=== PATIENT | male | born 1970 | race Two or more races ===

== ENCOUNTER 2016-08-08 19:11 | Inpatient (IN) | payer OTHER ==
[~2016-08-08] VITALS: Ht 167.6 cm; Wt 62.9 kg
[2016-08-08] MEDS ORDERED: ZOLPIDEM TARTRATE 5 MG TAB PO PRN (22:30)
[2016-08-08] MEDS ORDERED: D5W/SOD CHL 0.45% 1,000 ML IV SCH (22:30)
[2016-08-08] MEDS ORDERED: MORPHINE SULF INJ 2 MG/ML SYRINGE 1ML IV PRN (22:45)
[2016-08-08] MEDS ORDERED: NITROGLYCERIN 0.4 MG SL TAB SL PRN (22:45)
[2016-08-08 23:30] VITALS: BP 103/63
[2016-08-09] MEDS: HYDROcodone-ACET 10/325MG TAB PO PRN ×3 (02:06→13:39)
[2016-08-09 05:04] VITALS: BP 98/62
[2016-08-09 06:07] LABS: Basophils # (auto) 0 uL; Basophils % (auto) 0.8 % (0.0-2.0); Eosinophils # (auto) 0.1 uL; Eosinophils % (auto) 2.1 % (0.0-7.0); Hematocrit 44.2 % (41.0-53.0); Hemoglobin 14.6 g/dL (13.5-17.5); Lymphocytes % (auto) 34.4 % (10.0-50.0); Mean Corpuscular Hemoglobin 30.1 pg (28.0-32.0); Mean Corpuscular Volume 91.2 fL (80.0-100.0); Mean Platelet Volume 8.9 fL (7.4-10.4); Monocytes # (auto) 0.6 uL; Monocytes % (auto) 10.3 % (0.0-12.0); Neutrophils # (auto) 3.1 uL; Neutrophils % (auto) 52.4 % (37.0-80.0); Platelet Count (auto) 240 10^3/uL (140-450); Red Cell Distribution Width 13.4 % (11.6-16.0); White Blood Cell 5.9 10^3/uL (4.4-10.8)
[2016-08-09 06:22] LABS: INR 1.02 (0.9-1.15); Partial Thromboplastin Time 28.5 sec (22.64-33.71)
[2016-08-09 06:24] LABS: BUN/Creatinine Ratio 21.5; Calcium 8.2 mg/dL (8.5-10.1); Potassium 4.1 mmol/L (3.5-5.1)
[2016-08-09] MEDS ORDERED: LIDOCAINE 2%HCL (LOCAL ANESTH.) INJ 20ML MDV ONE (07:22)
[2016-08-09] MEDS ORDERED: IOHEXOL 350 MG/ML 100ML IJ ONE (07:22)
[2016-08-09 08:00] VITALS: BP 100/63
[2016-08-09 08:46] VITALS: BP 100/63
[2016-08-09] MEDS: METOPROLOL TARTRATE 25 MG TAB PO SCH (10:00)
[2016-08-09] MEDS: LISINOPRIL 5 MG TAB PO SCH (10:00)
[2016-08-09] MEDS ORDERED: ANGIOMAX 250 MG VIAL IV ONE (10:49)
[2016-08-09] MEDS ORDERED: fentaNYL CITRATE 100 MCG/2 ML VL ONE (10:49)
[2016-08-09] MEDS ORDERED: MIDAZOLAM HCL 1MG/1ML-2 ML VIAL ONE (10:50)
[2016-08-09] MEDS ORDERED: SODIUM CHL 0.9% 0 ML ONE (10:50)
[2016-08-09] MEDS ORDERED: HYDROcodone-ACET 5/325MG TAB PO PRN (12:00)
[2016-08-09] MEDS ORDERED: ceFAZolin 1GM/50ML D5W 50 ML IV ONE ×3 (12:00→20:00)
[2016-08-09] MEDS ORDERED: ONDANSETRON HCL 4 MG/2 ML VIAL IV PRN (12:00)
[2016-08-09] MEDS: SODIUM CHLORIDE 0.9% 1,000 ML IV SCH (12:00)
[2016-08-09 14:19] VITALS: BP 104/59
[2016-08-09 16:45] VITALS: BP 105/61
[2016-08-09] MEDS ORDERED: WARFARIN SODIUM 10 MG TAB PO ONE (17:00)
[2016-08-09] MEDS: ENOXAPARIN SOD 60 MG/0.6 ML SYRINGE SC SCH (21:47)
[2016-08-09] MEDS: FAMOTIDINE (10MG/ML) 2ML VL IV SCH (21:47)
[2016-08-09 22:00] VITALS: BP 97/65
[2016-08-10] MEDS: SODIUM CHLORIDE 0.9% 1,000 ML IV SCH ×2 (02:43→16:36)
[2016-08-10 05:00] VITALS: BP 96/58
[2016-08-10 06:42] LABS: INR 1.12 (0.9-1.15); Partial Thromboplastin Time 30.8 sec (22.64-33.71); Prothrombin Time 12.1 sec (9.37-12.3)
[2016-08-10 08:00] VITALS: BP 91/57
[2016-08-10] MEDS: METOPROLOL TARTRATE 25 MG TAB PO SCH (10:00)
[2016-08-10] MEDS: LISINOPRIL 5 MG TAB PO SCH (10:00)
[2016-08-10] MEDS: FAMOTIDINE (10MG/ML) 2ML VL IV SCH ×2 (11:13→21:37)
[2016-08-10] MEDS: ENOXAPARIN SOD 60 MG/0.6 ML SYRINGE SC SCH ×2 (11:13→21:37)
[2016-08-10 13:00] VITALS: BP 115/59
[2016-08-10 17:00] VITALS: BP 97/56
[2016-08-10] MEDS ORDERED: WARFARIN SODIUM 2.5 MG TAB PO ONE (17:00)
[2016-08-10 22:00] VITALS: BP 104/64
[2016-08-11 05:00] VITALS: BP 96/62
[2016-08-11 08:00] VITALS: BP 100/60
[2016-08-11 08:40] LABS: INR 1.43 (0.9-1.15); Partial Thromboplastin Time 33.1 sec (22.64-33.71); Prothrombin Time 15.4 sec (9.37-12.3)
[2016-08-11] MEDS: FAMOTIDINE (10MG/ML) 2ML VL IV SCH ×2 (09:12→21:13)
[2016-08-11] MEDS: ENOXAPARIN SOD 60 MG/0.6 ML SYRINGE SC SCH ×2 (09:13→21:14)
[2016-08-11] MEDS: LISINOPRIL 5 MG TAB PO SCH (09:13)
[2016-08-11] MEDS: METOPROLOL TARTRATE 25 MG TAB PO SCH (09:14)
[2016-08-11] MEDS: SODIUM CHLORIDE 0.9% 1,000 ML IV SCH ×2 (09:14)
[2016-08-11 13:00] VITALS: BP 91/56
[2016-08-11 17:00] VITALS: BP 100/58
[2016-08-11] MEDS ORDERED: WARFARIN SODIUM 5 MG TAB PO SCH (17:00)
[2016-08-11 22:00] VITALS: BP 96/61
[2016-08-12 05:00] VITALS: BP 98/58
[2016-08-12 06:17] LABS: Partial Thromboplastin Time 35.3 sec (22.64-33.71)
[2016-08-12 06:21] LABS: INR 1.86 (0.9-1.15); Prothrombin Time 20.1 sec (9.37-12.3)
[2016-08-12 08:00] VITALS: BP 93/60
[2016-08-12 09:00] VITALS: BP 93/60
[2016-08-12] MEDS: METOPROLOL TARTRATE 25 MG TAB PO SCH (09:59)
[2016-08-12] MEDS: LISINOPRIL 5 MG TAB PO SCH (10:00)
[2016-08-12] MEDS: ENOXAPARIN SOD 60 MG/0.6 ML SYRINGE SC SCH (10:02)
[2016-08-12] MEDS: FAMOTIDINE (10MG/ML) 2ML VL IV SCH (10:02)
[2016-08-12] MEDS: SODIUM CHLORIDE 0.9% 1,000 ML IV SCH (10:04)
[2016-08-12 13:00] VITALS: BP 91/64
[2016-08-12 13:32] VITALS: BP 93/60
== END 2016-08-12 16:05 | DRG 287 ==
LOC: WEST WING 19:11 → TELE-WESTW 20:35
PROVIDERS: ADMIT Specialist; ATTEND Internal Medicine
PROC: 4A023N7 Measurement of Cardiac Sampling and Pressure, Left Heart, Percutaneous Approach (ICD-10-PCS; principal; 2016-08-09)
PROC: B2151ZZ Fluoroscopy of Left Heart using Low Osmolar Contrast (ICD-10-PCS; 2016-08-09)
PROC: B2111ZZ Fluoroscopy of Multiple Coronary Arteries using Low Osmolar Contrast (ICD-10-PCS; 2016-08-09)
PROC: B3101ZZ Fluoroscopy of Thoracic Aorta using Low Osmolar Contrast (ICD-10-PCS; 2016-08-09)
PROC: B41F1ZZ Fluoroscopy of Right Lower Extremity Arteries using Low Osmolar Contrast (ICD-10-PCS; 2016-08-09)
DX: R07.9 Chest pain, unspecified (principal); I25.10 Atherosclerotic heart disease of native coronary artery without angina pectoris; I10 Essential (primary) hypertension; F12.90 Cannabis use, unspecified, uncomplicated; R94.39 Abnormal result of other cardiovascular function study; Z95.2 Presence of prosthetic heart valve; Z82.0 Family history of epilepsy and other diseases of the nervous system; Z82.49 Family history of ischemic heart disease and other diseases of the circulatory system; Z72.0 Tobacco use
CPT/HCPCS: 36415; 71010; 80048; 85025; 85610; 85730; 93005; 99152; J0690; J2250; J3490

== ENCOUNTER 2017-03-21 21:39 | Inpatient (IN) | payer OTHER ==
[~2017-03-21] VITALS: Ht 167.6 cm; Wt 69.2 kg
[2017-03-21 22:24] LABS: Basophils # (auto) 0.1 uL; Basophils % (auto) 1.4 % (0.0-2.0); Eosinophils # (auto) 0.2 uL; Eosinophils % (auto) 2.5 % (0.0-7.0); Hematocrit 45.1 % (41.0-53.0); Hemoglobin 15.2 g/dL (13.5-17.5); Lymphocytes # (auto) 2.4 uL; Lymphocytes % (auto) 35.6 % (10.0-50.0); Mean Corpuscular Hemoglobin 30.4 pg (28.0-32.0); Mean Corpuscular Hgb Conc. 33.7 g/dL (32.0-36.0); Mean Corpuscular Volume 90.3 fL (80.0-100.0); Mean Platelet Volume 8.1 fL (6.9-10.8); Monocytes # (auto) 0.6 uL; Monocytes % (auto) 8.8 % (0.0-12.0); Neutrophils # (auto) 3.4 uL; Neutrophils % (auto) 51.7 % (37.0-80.0); Nucleated Red Blood Cells % 0.1 %; Platelet Count (auto) 218 10^3/uL (140-450); Red Cell Distribution Width 13.5 % (11.8-14.3); White Blood Cell 6.6 10^3/uL (4.4-10.8)
[2017-03-21 22:33] LABS: Albumin 3.7 g/dL (3.4-5.0); Anion Gap 4 (5-15); Aspartate Aminotransferase 25 U/L (15-37); BUN/Creatinine Ratio 17.6; Blood Urea Nitrogen 15 mg/dL (7-18); Calcium 8.3 mg/dL (8.5-10.1); Carbon Dioxide 30 mmol/L (21-32); Chloride 104 mmol/L (98-107); GFR African American 124 mL/min; GFR Non-African American 103 mL/min; Glucose 78 mg/dL (74-106); INR 3.04 (0.9-1.15); Magnesium 2.4 mg/dL (1.6-2.6); Potassium 3.9 mmol/L (3.5-5.1); Prothrombin Time 33.5 sec (9.37-12.3); Sodium 138 mmol/L (136-145)
[2017-03-21 22:38] LABS: Alkaline Phosphatase 68 U/L (45-117); Bilirubin, Total 0.3 mg/dL (0.2-1.0); Total Protein 7.7 g/dL (6.4-8.2)
[2017-03-22] MEDS ORDERED: KETOROLAC TROMETH 30 MG/ML 1ML VIAL IV ONE ×2 (01:00→08:45)
[2017-03-22] MEDS ORDERED: NITROGLYCERIN 0.4 MG SL TAB SL PRN (02:00)
[2017-03-22] MEDS ORDERED: KETOROLAC TROMETH 30 MG/ML 1ML VIAL ONE (08:36)
[2017-03-22] MEDS: METOPROLOL TARTRATE 25 MG TAB PO SCH ×2 (09:50→22:00)
[2017-03-22] MEDS: DULoxetine HCL 30 MG CAP PO SCH (09:50)
[2017-03-22 10:28] VITALS: BP 97/62
[2017-03-22 13:00] VITALS: BP 99/57
[2017-03-22] MEDS ORDERED: predniSONE 20 MG TAB PO ONE (15:00)
[2017-03-22] MEDS: HYDROcodone-ACET 10/325MG TAB PO PRN ×2 (15:03→20:39)
[2017-03-22] MEDS ORDERED: DULO20CA PO (16:04)
[2017-03-22] MEDS ORDERED: ACET-1156 PO (16:04)
[2017-03-22] MEDS ORDERED: WARF5TAB PO (16:04)
[2017-03-22 17:00] VITALS: BP 104/65
[2017-03-22] MEDS: WARFARIN SODIUM 5 MG TAB PO SCH (17:30)
[2017-03-22 21:30] VITALS: BP 95/62
[2017-03-22] MEDS: predniSONE 20 MG TAB PO SCH (21:52)
[2017-03-23] MEDS: HYDROcodone-ACET 10/325MG TAB PO PRN ×6 (00:47→23:52)
[2017-03-23 04:56] VITALS: BP 100/63
[2017-03-23 06:43] LABS: INR 3.6 (0.9-1.15); Partial Thromboplastin Time 38.4 sec (22.64-33.71); Prothrombin Time 39.7 sec (9.37-12.3)
[2017-03-23 07:50] VITALS: BP 102/64
[2017-03-23] MEDS: METOPROLOL TARTRATE 25 MG TAB PO SCH ×2 (10:00→22:30)
[2017-03-23] MEDS: DULoxetine HCL 30 MG CAP PO SCH (10:25)
[2017-03-23] MEDS: predniSONE 20 MG TAB PO SCH ×2 (10:25→22:29)
[2017-03-23 11:42] VITALS: BP 95/55
[2017-03-23 16:00] VITALS: BP 99/56
[2017-03-23] MEDS: WARFARIN SODIUM 5 MG TAB PO SCH (17:00)
[2017-03-23 22:00] VITALS: BP 108/80
[2017-03-24] MEDS: HYDROcodone-ACET 10/325MG TAB PO PRN ×3 (03:50→20:45)
[2017-03-24 04:55] VITALS: BP 107/69
[2017-03-24 09:10] VITALS: BP 95/60
[2017-03-24] MEDS: DULoxetine HCL 30 MG CAP PO SCH (10:11)
[2017-03-24] MEDS: predniSONE 20 MG TAB PO SCH ×2 (10:11→22:42)
[2017-03-24] MEDS: METOPROLOL TARTRATE 25 MG TAB PO SCH ×2 (10:13→22:00)
[2017-03-24 14:33] LABS: Urine Bilirubin Negative (Negative); Urine Blood Negative /uL (Negative); Urine Color Yellow (Yellow); Urine Glucose Normal (Normal); Urine Ketone Negative (Negative); Urine Nitrite Negative (Negative); Urine RBC 1 /hpf (0 - 3); Urine Urobilinogen Normal (Negative); Urine pH 5.5 (5.0-8.0)
[2017-03-24 14:50] VITALS: BP 104/59
[2017-03-24] MEDS: WARFARIN SODIUM 5 MG TAB PO SCH (17:00)
[2017-03-24 17:28] VITALS: BP 121/69
[2017-03-24 18:15] LABS: INR 3.86 (0.9-1.15); Prothrombin Time 42.6 sec (9.37-12.3)
[2017-03-24 21:47] VITALS: BP 97/63
[2017-03-24] MEDS ORDERED: DOCUSATE SOD 100 MG CAP PO ONE (22:45)
[2017-03-25] MEDS: HYDROcodone-ACET 10/325MG TAB PO PRN ×4 (01:21→21:35)
[2017-03-25 04:57] VITALS: BP 91/60
[2017-03-25 05:44] LABS: Basophils # (auto) 0 uL; Basophils % (auto) 0.2 % (0.0-2.0); Eosinophils # (auto) 0 uL; Hematocrit 43.7 % (41.0-53.0); Hemoglobin 14.8 g/dL (13.5-17.5); Lymphocytes % (auto) 10.3 % (10.0-50.0); Mean Corpuscular Hemoglobin 30.9 pg (28.0-32.0); Mean Corpuscular Hgb Conc. 33.9 g/dL (32.0-36.0); Mean Platelet Volume 8.3 fL (6.9-10.8); Monocytes # (auto) 0.2 uL; Monocytes % (auto) 2.3 % (0.0-12.0); Neutrophils # (auto) 8.8 uL; Neutrophils % (auto) 87.2 % (37.0-80.0); Nucleated Red Blood Cells % 0.1 %; Platelet Count (auto) 216 10^3/uL (140-450); Red Cell Distribution Width 13.6 % (11.8-14.3); White Blood Cell 10.1 10^3/uL (4.4-10.8)
[2017-03-25 05:57] LABS: INR 2.19 (0.9-1.15); Prothrombin Time 24.1 sec (9.37-12.3)
[2017-03-25] MEDS: METOPROLOL TARTRATE 25 MG TAB PO SCH ×2 (10:00→23:23)
[2017-03-25] MEDS: DULoxetine HCL 30 MG CAP PO SCH (10:59)
[2017-03-25] MEDS: predniSONE 20 MG TAB PO SCH ×2 (10:59→22:00)
[2017-03-25] MEDS: DOCUSATE SOD 100 MG CAP PO PRN ×2 (11:00→21:35)
[2017-03-25 13:23] VITALS: BP 95/63
[2017-03-25 15:13] VITALS: BP 118/74
[2017-03-25] MEDS: LACTULOSE 20Gm/30ML SOLN PO SCH ×2 (15:13→23:23)
[2017-03-25] MEDS: WARFARIN SODIUM 5 MG TAB PO SCH (17:18)
[2017-03-25 18:00] VITALS: BP 114/64
[2017-03-25 22:00] VITALS: BP 112/71
[2017-03-26] MEDS: HYDROcodone-ACET 10/325MG TAB PO PRN ×2 (02:18→13:18)
[2017-03-26 05:30] VITALS: BP 98/62
[2017-03-26] MEDS: LACTULOSE 20Gm/30ML SOLN PO SCH ×2 (06:19→13:18)
[2017-03-26 06:42] LABS: INR 1.69 (0.9-1.15); Prothrombin Time 18.5 sec (9.37-12.3)
[2017-03-26 09:00] VITALS: BP 95/64
[2017-03-26] MEDS: METOPROLOL TARTRATE 25 MG TAB PO SCH (10:00)
[2017-03-26] MEDS: DULoxetine HCL 30 MG CAP PO SCH (11:07)
[2017-03-26] MEDS: predniSONE 20 MG TAB PO SCH (11:07)
[2017-03-26 13:00] VITALS: BP 94/60
[2017-03-26 15:50] VITALS: BP 120/66
[2017-03-26 17:00] VITALS: BP 94/57
[2017-03-26] MEDS: WARFARIN SODIUM 5 MG TAB PO SCH (17:10)
== END 2017-03-26 18:00 | disposition home or self-care (01) | DRG 313 ==
LOC: EDBD 21:39 → ER 21:45 → EEVIPCON 21:46 → TELE 21:46 → TELE-E-ADS 03-22 09:36 → EAST 03-23 00:11 → TELE-E-ADS 03-23 01:54 → EAST 03-23 23:35
PROVIDERS: ADMIT Internal Medicine; ATTEND Internal Medicine
DX: R07.89 Other chest pain (principal); I25.10 Atherosclerotic heart disease of native coronary artery without angina pectoris; D68.9 Coagulation defect, unspecified; R00.1 Bradycardia, unspecified; R06.02 Shortness of breath; F17.200 Nicotine dependence, unspecified, uncomplicated; F12.90 Cannabis use, unspecified, uncomplicated; I10 Essential (primary) hypertension; K59.00 Constipation, unspecified; R33.9 Retention of urine, unspecified; Z95.2 Presence of prosthetic heart valve; Z95.0 Presence of cardiac pacemaker; Z88.5 Allergy status to narcotic agent; Z82.0 Family history of epilepsy and other diseases of the nervous system; Z76.5 Malingerer [conscious simulation]
CPT/HCPCS: 36415; 71010; 78306; 80053; 81001; 83735; 84484; 85025; 85610; 85730; 93005; 96374; 96375; J1885

== ENCOUNTER 2017-05-27 17:58 | Inpatient (IN) | payer OTHER ==
[~2017-05-27] VITALS: Ht 167.6 cm; Wt 66.3 kg
[~2017-05-27 17:58] MED LIST: ACET-1156 PO; DULO20CA PO; WARF5TAB PO
[2017-05-27 20:42] LABS: Basophils # (auto) 0.1 uL; Eosinophils # (auto) 0.1 uL; Eosinophils % (auto) 1.2 % (0.0-7.0); Hemoglobin 15.7 g/dL (13.5-17.5); Lymphocytes # (auto) 1.4 uL; Lymphocytes % (auto) 24.1 % (10.0-50.0); Mean Corpuscular Hemoglobin 30.9 pg (28.0-32.0); Mean Corpuscular Hgb Conc. 33.4 g/dL (32.0-36.0); Mean Corpuscular Volume 92.5 fL (80.0-100.0); Monocytes # (auto) 0.5 uL; Monocytes % (auto) 7.9 % (0.0-12.0); Neutrophils # (auto) 3.9 uL; Neutrophils % (auto) 64.8 % (37.0-80.0); Nucleated Red Blood Cells % 0.2 %; Platelet Count (auto) 240 10^3/uL (140-450); Red Blood Cells 5.08 10^6/uL (4.5-5.90); Red Cell Distribution Width 14.1 % (11.8-14.3)
[2017-05-27 20:54] LABS: Partial Thromboplastin Time 41.5 sec (22.64-33.71); Prothrombin Time 45.4 sec (9.37-12.3)
[2017-05-27 20:57] LABS: INR 4.11 (0.9-1.15)
[2017-05-27 21:00] LABS: Albumin 4.3 g/dL (3.4-5.0); BUN/Creatinine Ratio 14.9; Potassium 4.7 mmol/L (3.5-5.1)
[2017-05-27 21:03] LABS: Bilirubin, Total 0.3 mg/dL (0.2-1.0); Total Protein 8.3 g/dL (6.4-8.2)
[2017-05-27] MEDS ORDERED: IOHEXOL 350 MG/ML 100ML IJ ONE (21:48)
[2017-05-27] MEDS ORDERED: HYDROcodone-ACET 5/325MG TAB PO ONE (23:30)
[2017-05-28 00:05] LABS: Urine Bacteria NONE SEEN /hpf (None Seen); Urine Blood Negative /uL (Negative); Urine Specific Gravity 1.016 (1.001-1.035); Urine WBC 4 /hpf (0 - 3)
[2017-05-28 05:00] VITALS: BP 119/69
[2017-05-28] MEDS ORDERED: WARF5TAB71 PO (05:38)
[2017-05-28] MEDS ORDERED: DULO20CA PO (05:38)
[2017-05-28] MEDS ORDERED: ACET-1156 PO (05:38)
[2017-05-28 08:00] VITALS: BP 121/62
[2017-05-28 10:38] LABS: Partial Thromboplastin Time 41.8 sec (22.64-33.71); Prothrombin Time 46.8 sec (9.37-12.3)
[2017-05-28 10:44] LABS: INR 4.23 (0.9-1.15)
[2017-05-28 12:00] VITALS: BP 102/63
[2017-05-28 16:00] VITALS: BP 113/66
[2017-05-28] MEDS: HYDROcodone-ACET 5/325MG TAB PO PRN ×2 (18:39→22:30)
[2017-05-28 21:48] VITALS: BP 104/62
[2017-05-29] MEDS: HYDROcodone-ACET 5/325MG TAB PO PRN ×3 (02:22→21:16)
[2017-05-29 04:36] VITALS: BP 99/57
[2017-05-29 06:15] LABS: Basophils # (auto) 0.1 uL; Eosinophils # (auto) 0.2 uL; Eosinophils % (auto) 3.2 % (0.0-7.0); Hematocrit 42.8 % (41.0-53.0); Hemoglobin 14.4 g/dL (13.5-17.5); Lymphocytes % (auto) 29.8 % (10.0-50.0); Mean Corpuscular Hemoglobin 31.1 pg (28.0-32.0); Mean Corpuscular Hgb Conc. 33.7 g/dL (32.0-36.0); Mean Corpuscular Volume 92.1 fL (80.0-100.0); Monocytes # (auto) 0.6 uL; Monocytes % (auto) 9.8 % (0.0-12.0); Neutrophils # (auto) 3.7 uL; Neutrophils % (auto) 56.2 % (37.0-80.0); Nucleated Red Blood Cells % 0.1 %; Platelet Count (auto) 233 10^3/uL (140-450); Red Blood Cells 4.65 10^6/uL (4.5-5.90); Red Cell Distribution Width 13.5 % (11.8-14.3); White Blood Cell 6.5 10^3/uL (4.4-10.8)
[2017-05-29 06:24] LABS: INR 3.23 (0.9-1.15); Partial Thromboplastin Time 40.4 sec (22.64-33.71); Prothrombin Time 35.6 sec (9.37-12.3)
[2017-05-29 06:26] LABS: BUN/Creatinine Ratio 17.3; Calcium 8.5 mg/dL (8.5-10.1); Potassium 4.5 mmol/L (3.5-5.1)
[2017-05-29 07:32] VITALS: BP 99/58
[2017-05-29 11:51] VITALS: BP 98/59
[2017-05-29] MEDS: SULFAMETHOX W/TRIMETH(800/160MG) DS TAB PO SCH ×2 (14:52→21:16)
[2017-05-29 17:15] VITALS: BP 97/60
[2017-05-29] MEDS ORDERED: WARFARIN SODIUM 2 MG TAB PO ONE ×2 (17:45→18:00)
[2017-05-29] MEDS: TAMSULOSIN HYDROCHLORIDE 0.4 MG CAP PO SCH (18:13)
[2017-05-29 21:59] VITALS: BP 95/65
[2017-05-30] MEDS: HYDROcodone-ACET 5/325MG TAB PO PRN ×4 (01:44→21:22)
[2017-05-30] MEDS ORDERED: MILK OF MAGNESIA 30ML SUSP PO PRN (02:30)
[2017-05-30] MEDS ORDERED: DOCUSATE SOD 100 MG CAP PO ONE (02:30)
[2017-05-30] MEDS ORDERED: MILK OF MAGNESIA 30ML SUSP PO ONE (02:30)
[2017-05-30 04:35] VITALS: BP 104/67
[2017-05-30 06:41] LABS: Basophils # (auto) 0.1 uL; Basophils % (auto) 1.3 % (0.0-2.0); Eosinophils # (auto) 0.1 uL; Hemoglobin 15.3 g/dL (13.5-17.5); Lymphocytes # (auto) 1.7 uL; Lymphocytes % (auto) 23.5 % (10.0-50.0); Mean Corpuscular Hemoglobin 31.3 pg (28.0-32.0); Mean Corpuscular Volume 91.8 fL (80.0-100.0); Monocytes # (auto) 0.6 uL; Monocytes % (auto) 7.9 % (0.0-12.0); Neutrophils # (auto) 4.6 uL; Neutrophils % (auto) 65.3 % (37.0-80.0); Nucleated Red Blood Cells % 0.1 %; Platelet Count (auto) 230 10^3/uL (140-450); Red Cell Distribution Width 13.9 % (11.8-14.3)
[2017-05-30 07:03] LABS: INR 2.07 (0.9-1.15); Prothrombin Time 22.7 sec (9.37-12.3)
[2017-05-30 08:38] LABS: INR 2.8 (0.9-1.15); Partial Thromboplastin Time 37.8 sec (22.64-33.71); Prothrombin Time 30.8 sec (9.37-12.3)
[2017-05-30 09:00] VITALS: BP 109/70
[2017-05-30] MEDS: SULFAMETHOX W/TRIMETH(800/160MG) DS TAB PO SCH ×2 (09:32→21:22)
[2017-05-30 13:00] VITALS: BP 126/59
[2017-05-30 17:00] VITALS: BP 90/93
[2017-05-30] MEDS ORDERED: WARFARIN SODIUM 2.5 MG TAB PO ONE (17:00)
[2017-05-30] MEDS: TAMSULOSIN HYDROCHLORIDE 0.4 MG CAP PO SCH (18:11)
[2017-05-30 20:00] VITALS: BP 105/62
[2017-05-30 21:38] VITALS: BP 105/62
[2017-05-31 04:54] VITALS: BP 112/67
[2017-05-31 08:29] VITALS: BP 109/70
[2017-05-31] MEDS: SULFAMETHOX W/TRIMETH(800/160MG) DS TAB PO SCH ×2 (09:10→22:03)
[2017-05-31 10:45] LABS: Partial Thromboplastin Time 39.8 sec (22.64-33.71); Prothrombin Time 48.3 sec (9.37-12.3)
[2017-05-31 10:53] LABS: INR 4.37 (0.9-1.15)
[2017-05-31 12:24] VITALS: BP 114/60
[2017-05-31 17:02] VITALS: BP 94/74
[2017-05-31] MEDS: TAMSULOSIN HYDROCHLORIDE 0.4 MG CAP PO SCH (18:54)
[2017-05-31] MEDS: HYDROcodone-ACET 5/325MG TAB PO PRN (19:45)
[2017-05-31 22:04] VITALS: BP 94/66
[2017-06-01] MEDS: HYDROcodone-ACET 5/325MG TAB PO PRN ×2 (02:47→18:11)
[2017-06-01 05:34] VITALS: BP 100/57
[2017-06-01 06:35] LABS: Basophils # (auto) 0.1 uL; Basophils % (auto) 1.3 % (0.0-2.0); Eosinophils # (auto) 0.2 uL; Eosinophils % (auto) 3.5 % (0.0-7.0); Hematocrit 41.7 % (41.0-53.0); Hemoglobin 14.1 g/dL (13.5-17.5); Lymphocytes # (auto) 2.1 uL; Lymphocytes % (auto) 38.5 % (10.0-50.0); Mean Corpuscular Hemoglobin 31.1 pg (28.0-32.0); Mean Corpuscular Hgb Conc. 33.7 g/dL (32.0-36.0); Mean Corpuscular Volume 92.1 fL (80.0-100.0); Monocytes # (auto) 0.7 uL; Monocytes % (auto) 13.9 % (0.0-12.0); Neutrophils # (auto) 2.3 uL; Neutrophils % (auto) 42.8 % (37.0-80.0); Nucleated Red Blood Cells % 0.2 %; Platelet Count (auto) 241 10^3/uL (140-450); Red Blood Cells 4.52 10^6/uL (4.5-5.90); Red Cell Distribution Width 13.7 % (11.8-14.3); White Blood Cell 5.3 10^3/uL (4.4-10.8)
[2017-06-01 06:43] LABS: Prothrombin Time 57.5 sec (9.37-12.3)
[2017-06-01 06:48] LABS: INR 5.19 (0.9-1.15)
[2017-06-01 06:49] LABS: BUN/Creatinine Ratio 15.6; Calcium 8.4 mg/dL (8.5-10.1)
[2017-06-01 09:00] VITALS: BP 106/42
[2017-06-01] MEDS: SULFAMETHOX W/TRIMETH(800/160MG) DS TAB PO SCH ×2 (09:51→21:56)
[2017-06-01 12:25] VITALS: BP 112/55
[2017-06-01 16:09] VITALS: BP 102/52
[2017-06-01] MEDS: TAMSULOSIN HYDROCHLORIDE 0.4 MG CAP PO SCH (17:24)
[2017-06-01 20:00] VITALS: BP 99/60
[2017-06-02 00:34] VITALS: BP 99/60
[2017-06-02] MEDS: HYDROcodone-ACET 5/325MG TAB PO PRN ×2 (01:00→09:23)
[2017-06-02 05:56] VITALS: BP 97/56
[2017-06-02 06:04] LABS: Basophils # (auto) 0.1 uL; Basophils % (auto) 1.5 % (0.0-2.0); Eosinophils # (auto) 0.2 uL; Eosinophils % (auto) 3.4 % (0.0-7.0); Hematocrit 39.6 % (41.0-53.0); Hemoglobin 13.5 g/dL (13.5-17.5); Lymphocytes # (auto) 1.5 uL; Lymphocytes % (auto) 28.8 % (10.0-50.0); Mean Corpuscular Hemoglobin 31.2 pg (28.0-32.0); Mean Corpuscular Hgb Conc. 34.1 g/dL (32.0-36.0); Mean Corpuscular Volume 91.6 fL (80.0-100.0); Monocytes # (auto) 0.5 uL; Monocytes % (auto) 9.8 % (0.0-12.0); Neutrophils # (auto) 2.9 uL; Neutrophils % (auto) 56.5 % (37.0-80.0); Nucleated Red Blood Cells % 0.1 %; Platelet Count (auto) 216 10^3/uL (140-450); Red Blood Cells 4.33 10^6/uL (4.5-5.90); Red Cell Distribution Width 13.6 % (11.8-14.3); White Blood Cell 5.1 10^3/uL (4.4-10.8)
[2017-06-02 06:18] LABS: Calcium 8.2 mg/dL (8.5-10.1); Potassium 4.1 mmol/L (3.5-5.1)
[2017-06-02 06:20] LABS: INR 2.91 (0.9-1.15); Prothrombin Time 32.1 sec (9.37-12.3)
[2017-06-02 06:22] LABS: BUN/Creatinine Ratio 12.3
[2017-06-02 08:22] VITALS: BP 101/59
[2017-06-02] MEDS: SULFAMETHOX W/TRIMETH(800/160MG) DS TAB PO SCH (09:22)
[2017-06-02 11:53] VITALS: BP 93/53
[2017-06-02 13:14] VITALS: BP 93/53
[2017-06-02] MEDS ORDERED: WARFARIN SODIUM 1 MG TAB PO ONE (17:00)
== END 2017-06-02 14:45 | DRG 696 ==
LOC: ER 17:58 → OVERFLOW 17:59 → EEVIPCON 17:59 → EAST 05-28 04:05
PROVIDERS: ADMIT Internal Medicine; ATTEND Internal Medicine
DX: R33.9 Retention of urine, unspecified (principal); D68.9 Coagulation defect, unspecified; N39.0 Urinary tract infection, site not specified; K44.9 Diaphragmatic hernia without obstruction or gangrene; J43.2 Centrilobular emphysema; D71 Functional disorders of polymorphonuclear neutrophils; I25.10 Atherosclerotic heart disease of native coronary artery without angina pectoris; L94.2 Calcinosis cutis; N40.1 Benign prostatic hyperplasia with lower urinary tract symptoms; Z79.01 Long term (current) use of anticoagulants; Z82.0 Family history of epilepsy and other diseases of the nervous system; Z95.0 Presence of cardiac pacemaker; Z95.2 Presence of prosthetic heart valve
CPT/HCPCS: 36415; 71275; 74176; 80048; 80053; 81001; 85025; 85610; 85730; 87081

== ENCOUNTER 2017-06-22 00:54 | Inpatient (IN) | payer OTHER ==
[~2017-06-22] VITALS: Ht 177.8 cm; Wt 68.4 kg
[~2017-06-22 00:54] MED LIST changes: -ACET-1156 PO
[2017-06-22 01:41] LABS: Basophils # (auto) 0.1 uL; Basophils % (auto) 1.3 % (0.0-2.0); Eosinophils # (auto) 0.1 uL; Eosinophils % (auto) 1.4 % (0.0-7.0); Hemoglobin 14.7 g/dL (13.5-17.5); Lymphocytes # (auto) 1.7 uL; Lymphocytes % (auto) 27.2 % (10.0-50.0); Mean Corpuscular Hemoglobin 31.3 pg (28.0-32.0); Mean Corpuscular Hgb Conc. 34.1 g/dL (32.0-36.0); Mean Corpuscular Volume 91.6 fL (80.0-100.0); Monocytes # (auto) 0.5 uL; Monocytes % (auto) 8.1 % (0.0-12.0); Neutrophils # (auto) 3.8 uL; Nucleated Red Blood Cells % 0.1 %; Platelet Count (auto) 250 10^3/uL (140-450); White Blood Cell 6.2 10^3/uL (4.4-10.8)
[2017-06-22 01:57] LABS: Alanine Aminotransferase 32 U/L (16-61); Anion Gap 6 (5-15); Calcium 8.5 mg/dL (8.5-10.1); Carbon Dioxide 27 mmol/L (21-32); Chloride 106 mmol/L (98-107); Glucose 87 mg/dL (74-106); Potassium 4.3 mmol/L (3.5-5.1); Sodium 139 mmol/L (136-145)
[2017-06-22 02:00] LABS: Aspartate Aminotransferase 21 U/L (15-37); BUN/Creatinine Ratio 14.2; Bilirubin, Total 0.3 mg/dL (0.2-1.0); Blood Urea Nitrogen 17 mg/dL (7-18); GFR African American 83 mL/min; GFR Non-African American 69 mL/min; Total Protein 7.6 g/dL (6.4-8.2)
[2017-06-22 02:03] LABS: Alkaline Phosphatase 65 U/L (45-117)
[2017-06-22] MEDS ORDERED: PANTOPRAZOLE 40 MG/10 ML VIAL IV ONE (03:15)
[2017-06-22 04:01] LABS: Urine Bacteria NONE SEEN /hpf (None Seen); Urine Blood Negative /uL (Negative); Urine Specific Gravity 1.011 (1.001-1.035); Urine WBC 1 /hpf (0 - 3)
[2017-06-22 04:16] LABS: Alcohol, Urine < 3.0 mg/dL (0-5); Amphetamine Screen, Urine NEGATIVE (NEGATIVE); Barbiturate Scree,Urine NEGATIVE (NEGATIVE); Benzodiazephine Screen, Urine NEGATIVE (NEGATIVE); Cannabinoid Screen, Urine NEGATIVE (NEGATIVE); Cocaine Screen, Urine NEGATIVE (NEGATIVE); Opiate Scree,Urine NEGATIVE (NEGATIVE); Phencyclidine Screen, Urine NEGATIVE (NEGATIVE)
[2017-06-22] MEDS ORDERED: NITROGLYCERIN 0.4 MG SL TAB SL PRN (06:00)
[2017-06-22] MEDS: SODIUM CHLORIDE 0.9% 1,000 ML IV SCH ×3 (06:29→23:21)
[2017-06-22 09:00] VITALS: BP 95/71
[2017-06-22] MEDS ORDERED: WARF4TAB33 PO (09:54)
[2017-06-22] MEDS: PANTOPRAZOLE 40 MG/10 ML VIAL IV SCH ×2 (11:08→23:21)
[2017-06-22] MEDS: HYDROcodone-ACET 10/325MG TAB PO SCH ×4 (11:08→23:12)
[2017-06-22 13:00] VITALS: BP 92/63
[2017-06-22] MEDS ORDERED: IOHEXOL 300 MG/ML 100ML BOTTLE IJ ONE (13:05)
[2017-06-22 13:37] LABS: Partial Thromboplastin Time 43.4 sec (22.64-33.71); Prothrombin Time 45.8 sec (9.37-12.3)
[2017-06-22 13:48] LABS: INR 4.14 (0.9-1.15)
[2017-06-22 16:52] VITALS: BP 114/71
[2017-06-22 21:37] VITALS: BP 112/71
[2017-06-22] MEDS: ENOXAPARIN SOD 100 MG/1 ML SYRINGE SC SCH (23:13)
[2017-06-23] MEDS: SODIUM CHLORIDE 0.9% 1,000 ML IV SCH ×2 (02:00→08:33)
[2017-06-23] MEDS: HYDROcodone-ACET 10/325MG TAB PO SCH ×4 (03:33→16:54)
[2017-06-23 05:23] VITALS: BP 121/78
[2017-06-23 06:32] LABS: Basophils # (auto) 0.1 uL; Basophils % (auto) 1.6 % (0.0-2.0); Eosinophils # (auto) 0.2 uL; Eosinophils % (auto) 2.6 % (0.0-7.0); Hematocrit 41.8 % (41.0-53.0); Hemoglobin 14.1 g/dL (13.5-17.5); Lymphocytes # (auto) 1.6 uL; Lymphocytes % (auto) 26.9 % (10.0-50.0); Mean Corpuscular Hemoglobin 31.1 pg (28.0-32.0); Mean Corpuscular Hgb Conc. 33.6 g/dL (32.0-36.0); Mean Corpuscular Volume 92.5 fL (80.0-100.0); Monocytes # (auto) 0.7 uL; Monocytes % (auto) 11.4 % (0.0-12.0); Neutrophils # (auto) 3.4 uL; Neutrophils % (auto) 57.5 % (37.0-80.0); Nucleated Red Blood Cells % 0.1 %; Platelet Count (auto) 239 10^3/uL (140-450); Red Blood Cells 4.52 10^6/uL (4.5-5.90); Red Cell Distribution Width 13.8 % (11.8-14.3); White Blood Cell 5.9 10^3/uL (4.4-10.8)
[2017-06-23 08:00] VITALS: BP 104/66
[2017-06-23] MEDS: PANTOPRAZOLE 40 MG/10 ML VIAL IV SCH ×2 (08:33→22:21)
[2017-06-23] MEDS: ENOXAPARIN SOD 100 MG/1 ML SYRINGE SC SCH ×2 (08:33→22:21)
[2017-06-23 12:00] VITALS: BP 114/99
[2017-06-23] MEDS ORDERED: PHYTONADIONE (VIT K)10 MG/ML 1ML VIAL SUBCUT ONE (13:15)
[2017-06-23 16:49] VITALS: BP 96/59
[2017-06-23] MEDS: TAMSULOSIN HYDROCHLORIDE 0.4 MG CAP PO SCH (16:54)
[2017-06-23 21:37] VITALS: BP 105/56
[2017-06-24 04:48] VITALS: BP 115/65
[2017-06-24 06:56] LABS: Basophils # (auto) 0.1 uL; Eosinophils # (auto) 0.2 uL; Eosinophils % (auto) 2.9 % (0.0-7.0); Hematocrit 42.2 % (41.0-53.0); Hemoglobin 14.3 g/dL (13.5-17.5); Lymphocytes # (auto) 1.5 uL; Lymphocytes % (auto) 27.6 % (10.0-50.0); Mean Corpuscular Hemoglobin 31.1 pg (28.0-32.0); Mean Corpuscular Hgb Conc. 33.8 g/dL (32.0-36.0); Monocytes # (auto) 0.7 uL; Monocytes % (auto) 12.1 % (0.0-12.0); Neutrophils % (auto) 56.4 % (37.0-80.0); Platelet Count (auto) 235 10^3/uL (140-450); Red Blood Cells 4.59 10^6/uL (4.5-5.90); Red Cell Distribution Width 13.7 % (11.8-14.3); White Blood Cell 5.4 10^3/uL (4.4-10.8)
[2017-06-24 08:43] VITALS: BP 101/59
[2017-06-24] MEDS: PANTOPRAZOLE 40 MG/10 ML VIAL IV SCH ×2 (09:03→21:02)
[2017-06-24] MEDS: ENOXAPARIN SOD 100 MG/1 ML SYRINGE SC SCH ×2 (09:03→21:02)
[2017-06-24 09:28] LABS: INR 1.43 (0.9-1.15); Prothrombin Time 15.6 sec (9.37-12.3)
[2017-06-24] MEDS: HYDROcodone-ACET 10/325MG TAB PO PRN (10:15)
[2017-06-24 12:56] VITALS: BP 97/53
[2017-06-24 16:29] VITALS: BP 99/66
[2017-06-24] MEDS: TAMSULOSIN HYDROCHLORIDE 0.4 MG CAP PO SCH (17:33)
[2017-06-24 21:38] VITALS: BP 107/66
[2017-06-25] MEDS: HYDROcodone-ACET 10/325MG TAB PO PRN ×3 (01:43→23:02)
[2017-06-25 04:52] VITALS: BP 118/70
[2017-06-25 06:33] LABS: Basophils # (auto) 0.1 uL; Basophils % (auto) 1.3 % (0.0-2.0); Eosinophils # (auto) 0.2 uL; Eosinophils % (auto) 3.9 % (0.0-7.0); Hematocrit 41.5 % (41.0-53.0); Hemoglobin 14.1 g/dL (13.5-17.5); Lymphocytes # (auto) 1.5 uL; Lymphocytes % (auto) 35.8 % (10.0-50.0); Mean Corpuscular Hemoglobin 31.3 pg (28.0-32.0); Mean Corpuscular Volume 92.1 fL (80.0-100.0); Monocytes # (auto) 0.5 uL; Monocytes % (auto) 12.3 % (0.0-12.0); Neutrophils % (auto) 46.7 % (37.0-80.0); Nucleated Red Blood Cells % 0.1 %; Platelet Count (auto) 226 10^3/uL (140-450); Red Cell Distribution Width 13.5 % (11.8-14.3); White Blood Cell 4.2 10^3/uL (4.4-10.8)
[2017-06-25 06:43] LABS: BUN/Creatinine Ratio 7.8; Calcium 8.9 mg/dL (8.5-10.1); Potassium 4.4 mmol/L (3.5-5.1)
[2017-06-25 07:43] VITALS: BP 99/55
[2017-06-25] MEDS: ENOXAPARIN SOD 100 MG/1 ML SYRINGE SC SCH ×2 (10:23→22:56)
[2017-06-25 12:51] VITALS: BP 96/61
[2017-06-25 16:17] VITALS: BP 99/63
[2017-06-25] MEDS: TAMSULOSIN HYDROCHLORIDE 0.4 MG CAP PO SCH (18:30)
[2017-06-25 21:51] VITALS: BP 107/52
[2017-06-26 04:59] VITALS: BP 96/51
[2017-06-26] MEDS: ENOXAPARIN SOD 100 MG/1 ML SYRINGE SC SCH (07:34)
[2017-06-26 09:01] VITALS: BP 97/58
[2017-06-26] MEDS ORDERED: GOLYTELY 4L KIT PO ONE (12:00)
[2017-06-26 12:11] LABS: INR 1.04 (0.9-1.15); Prothrombin Time 11.3 sec (9.37-12.3)
[2017-06-26 13:00] VITALS: BP 114/61
[2017-06-26 17:00] VITALS: BP 98/63
[2017-06-26] MEDS: TAMSULOSIN HYDROCHLORIDE 0.4 MG CAP PO SCH (17:41)
[2017-06-26 22:00] VITALS: BP 106/56
[2017-06-27 05:21] VITALS: BP 95/62
[2017-06-27] MEDS ORDERED: GOLYTELY 4L KIT PO ONE (06:00)
[2017-06-27] MEDS ORDERED: MIDAZOLAM HCL 5 MG/ML-1ML VIAL ONE (07:50)
[2017-06-27] MEDS ORDERED: diphenhdrAMINE HCL 50 MG/1 ML VL ONE (07:51)
[2017-06-27] MEDS ORDERED: fentaNYL CITRATE 100 MCG/2 ML VL ONE (07:51)
[2017-06-27 09:00] VITALS: BP 97/55
[2017-06-27] MEDS ORDERED: VANCOMYCIN 1GM/250ML 250 ML IV ONE (10:30)
[2017-06-27] MEDS ORDERED: HYDROCORTISONE ACET 25 MG RECTAL SUPP PR SCH (11:00)
[2017-06-27] MEDS ORDERED: TAM04C PO (12:57)
[2017-06-27 13:00] VITALS: BP 100/69
[2017-06-27 17:00] VITALS: BP 109/49
[2017-06-27 17:43] VITALS: BP 100/69
[2017-06-27 17:56] VITALS: BP 100/69
[2017-06-27] MEDS: TAMSULOSIN HYDROCHLORIDE 0.4 MG CAP PO SCH (18:53)
[2017-06-27] MEDS ORDERED: ENOXAPARIN SOD 80 MG/0.8ML SYRINGE SC SCH (22:00)
== END 2017-06-27 20:45 | DRG 394 ==
LOC: EDBD 00:54 → ER 00:59 → OVERFLOW 01:00 → EEVIPCON 01:00 → EAST 08:58
PROVIDERS: ADMIT Internal Medicine; ATTEND Internal Medicine
PROC: 0DJD8ZZ Inspection of Lower Intestinal Tract, Via Natural or Artificial Opening Endoscopic (ICD-10-PCS; principal; 2017-06-27 10:07)
DX: K64.8 Other hemorrhoids (principal); K92.2 Gastrointestinal hemorrhage, unspecified; F12.90 Cannabis use, unspecified, uncomplicated; I10 Essential (primary) hypertension; I25.10 Atherosclerotic heart disease of native coronary artery without angina pectoris; K52.9 Noninfective gastroenteritis and colitis, unspecified; N40.0 Benign prostatic hyperplasia without lower urinary tract symptoms; Z82.0 Family history of epilepsy and other diseases of the nervous system; Z95.0 Presence of cardiac pacemaker; Z95.2 Presence of prosthetic heart valve
CPT/HCPCS: 36415; 36600; 45378; 71045; 74177; 80048; 80053; 80307; 81001; 82270; 82805; 83880; 84484; 85025; 85610; 85730; 87081; 93005; 96374; 96376; C9113; J2250; J3430

== ENCOUNTER 2017-07-30 02:34 | Emergency (ER) | payer OTHER ==
[~2017-07-30] VITALS: Ht 170.2 cm; Wt 63.5 kg
[~2017-07-30 02:34] MED LIST changes: +TAM04C PO; +WARF4TAB33 PO; -WARF5TAB PO
[2017-07-30] MEDS ORDERED: ONDANSETRON HCL 4 MG/2 ML VIAL IM ONE (03:30)
[2017-07-30] MEDS ORDERED: NALBUPHINE HCL 10 MG/1ml INJECTION IM ONE (03:30)
[2017-07-30 04:04] VITALS: BP 115/75
[2017-07-30 04:24] LABS: Basophils # (auto) 0.1 uL; Basophils % (auto) 0.6 % (0.0-2.0); Eosinophils # (auto) 0.1 uL; Eosinophils % (auto) 1.1 % (0.0-7.0); Hematocrit 48.4 % (41.0-53.0); Hemoglobin 16.6 g/dL (13.5-17.5); Lymphocytes # (auto) 1.3 uL; Lymphocytes % (auto) 11.9 % (10.0-50.0); Mean Corpuscular Hgb Conc. 34.3 g/dL (32.0-36.0); Mean Corpuscular Volume 90.2 fL (80.0-100.0); Monocytes # (auto) 1.1 uL; Monocytes % (auto) 10.2 % (0.0-12.0); Neutrophils # (auto) 8.3 uL; Neutrophils % (auto) 76.2 % (37.0-80.0); Platelet Count (auto) 299 10^3/uL (140-450); Red Blood Cells 5.37 10^6/uL (4.5-5.90); Red Cell Distribution Width 13.6 % (11.8-14.3); White Blood Cell 10.9 10^3/uL (4.4-10.8)
[2017-07-30 04:39] LABS: Albumin 3.8 g/dL (3.4-5.0); BUN/Creatinine Ratio 10.2; Bilirubin, Total 0.7 mg/dL (0.2-1.0); Calcium 8.8 mg/dL (8.5-10.1); Potassium 4.3 mmol/L (3.5-5.1); Total Protein 8.4 g/dL (6.4-8.2)
[2017-07-30 06:21] LABS: Urine Bacteria NONE SEEN /hpf (None Seen); Urine Blood Negative /uL (Negative); Urine Mucus FEW (None Seen); Urine WBC 1 /hpf (0 - 3)
== END 2017-07-30 06:28 | disposition home or self-care (01) ==
LOC: EDBD 02:34 → ER 02:36
DX: R30.0 Dysuria (principal); Z02.89 Encounter for other administrative examinations; Z95.0 Presence of cardiac pacemaker; Z86.73 Personal history of transient ischemic attack (TIA), and cerebral infarction without residual deficits
CPT/HCPCS: 36415; 80053; 81001; 85025; 93005; 96372; 99285; J2300; J2405